=== PATIENT | male | born 1960 | race Caucasian/White ===

== ENCOUNTER 2016-12-24 07:55 | Emergency (ER) | payer OTHER ==
[2016-12-24 08:54] LABS: BASOPHIL % 0.3 % (0-2)
[2016-12-24 09:00] LABS: PLATELET COUNT 145 x10^3mcL (130-400)
[2016-12-24 09:08] LABS: RED CELL DISTRIBUTION WIDTH 17.1 % (11.5-14.5)
[2016-12-24 09:13] LABS: CALCIUM 8.3 mg/dL (8.5-10.1); CARBON DIOXIDE 26.7 mmol/L (21-32); CHLORIDE SERUM 105 mmol/L (98-107); CREATININE SERUM 0.7 mg/dL (0.7-1.3); GFR1 > 60 mL/min; GLUCOSE SERUM 100 mg/dL (74-106); POTASSIUM SERUM 3.5 mmol/L (3.5-5.1); SODIUM SERUM 138 mmol/L (136-145)
[2016-12-24 09:28] LABS: CK-MB 0.9 ng/mL (0-3.6)
[2016-12-24 11:52] VITALS: BP 140/64
== END 2016-12-24 11:53 | disposition home or self-care (01) ==
LOC: ED 07:55
PROVIDERS: Emergency Medicine
DX: R51 Headache (principal); M54.9 Dorsalgia, unspecified; I10 Essential (primary) hypertension
CPT/HCPCS: 83880; J0360; J1885

== ENCOUNTER 2017-01-23 07:37 | Emergency (ER) | payer OTHER ==
[~2017-01-23] VITALS: Ht 170.2 cm; Wt 104.3 kg
[2017-01-23 08:23] VITALS: BP 157/92
== END 2017-01-23 08:23 | disposition home or self-care (01) ==
LOC: ED 07:37
DX: B02.9 Zoster without complications (principal); E11.9 Type 2 diabetes mellitus without complications; G62.9 Polyneuropathy, unspecified; E78.5 Hyperlipidemia, unspecified

== ENCOUNTER 2018-05-21 18:01 | Emergency (ER) | payer OTHER ==
[~2018-05-21] VITALS: Ht 167.6 cm; Wt 104.8 kg
[2018-05-21 18:05] VITALS: Ht 167.6 cm; Wt 104.8 kg
[2018-05-21 19:17] VITALS: BP 167/95
== END 2018-05-21 19:58 | disposition home or self-care (01) ==
LOC: ED 18:01
DX: M54.42 Lumbago with sciatica, left side (principal); M54.41 Lumbago with sciatica, right side; I10 Essential (primary) hypertension; E78.5 Hyperlipidemia, unspecified
CPT/HCPCS: J1885

== ENCOUNTER 2019-07-31 18:08 | Emergency (ER) | payer OTHER ==
[~2019-07-31] VITALS: Ht 170.2 cm; Wt 101.6 kg
[2019-07-31 19:30] VITALS: Ht 170.2 cm; Wt 101.6 kg
[2019-07-31 21:20] VITALS: BP 167/67
== END 2019-07-31 21:20 | disposition home or self-care (01) ==
LOC: ED 18:08
DX: M75.31 Calcific tendinitis of right shoulder (principal); M19.011 Primary osteoarthritis, right shoulder; I10 Essential (primary) hypertension; E78.5 Hyperlipidemia, unspecified

== ENCOUNTER 2019-09-01 23:01 | Inpatient (IN) | payer OTHER ==
[~2019-09-01] VITALS: Ht 165.1 cm; Wt 102.5 kg
[2019-09-01 23:10] VITALS: Ht 165.1 cm; Wt 102.5 kg
--- NOTE | 2019-09-01 23:10 | NUR ---
EKG IN PROGRESS.
--- NOTE | 2019-09-01 23:40 | NUR ---
PT PROVIDED WITH URINAL AND INSTRUCTED TO PROVIDE URINE SAMPLE HENRIK.
--- NOTE | 2019-09-01 23:49 | NUR ---
PT PRESENTS TO ED WITH C/C MID UPPER QUAD "STRONG" ABD PAIN THAT RADIATES TO UPPER BACK AND IS CIRCUMFRENTIAL. 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 DENIES CHEST PAIN, DENIES SOB. PT DENIES N/V/D/C. PT REPORTS HX OF HTN, STS HE TAKES LISINPRIL 40MG BID. PT REPORTS BEING COMPLIANT WITH MED REGIMEN. PT SPEAKING CLEARLY IN FULL SENTENCES. NO FACIAL DROOP NOTED. ABLE TO AMBULATE WITH STEADY GAIT. STREGTH EQUAL TERESITA. CONNECTED TO FULL CM. DR VELAZQUEZ AT BEDSIDE FOR MSE.
--- NOTE | 2019-09-01 23:58 | NUR ---
XRAP AT BEDSIDE FOR PCXR.
[2019-09-02 00:17] LABS: BASOPHIL % 0.2 % (0-2); PLATELET COUNT 176 x10^3mcL (130-400)
[2019-09-02 00:18] LABS: RED CELL DISTRIBUTION WIDTH 16.6 % (11.5-14.5)
[2019-09-02 00:38] LABS: T3 TOTAL 0.9 ng/mL
[2019-09-02 00:52] LABS: FREE T4 0.94 ng/dL (0.76-1.46); FREE THYROXINE INDEX 2.6 ug/dL (1.4-4.5); T4(THYROXINE) 8.9 ug/dL (4.7-13.3)
[2019-09-02 01:01] LABS: CHOLESTEROL 172 mg/dL (<200); HDL CHOLESTEROL 43 mg/dL (40-60); LIPASE 252 IU/L (73-393); TRIGLYCERIDES 104 mg/dL (<150)
--- NOTE | 2019-09-02 01:06 | NUR ---
US AT BEDSIDE. PT INSTRUCTED AGAIN TO PROVIDE URINE SAMPLE HENRIK.
[2019-09-02 01:23] LABS: ALBUMIN 3.5 g/dL (3.4-5.0); TOTAL PROTEIN, SERUM 7.6 g/dL (6.4-8.2)
[2019-09-02 01:24] LABS: ALKALINE PHOSPHATASE 151 U/L (46-116); ALT/SGPT 94 U/L (16-63); AST/SGOT 15 U/L (15-37); BILIRUBIN TOTAL 0.4 mg/dL (0.20-1.00)
[2019-09-02 01:33] LABS: CARBON DIOXIDE 24.7 mmol/L (21-32); CHLORIDE SERUM 104 mmol/L (98-107); CREATININE SERUM 0.8 mg/dL (0.7-1.3); GFR1 > 60 mL/min; GLUCOSE SERUM 258 mg/dL (74-106); POTASSIUM SERUM 3.6 mmol/L (3.5-5.1); SODIUM SERUM 140 mmol/L (136-145)
[2019-09-02 01:34] LABS: CALCIUM 8.6 mg/dL (8.5-10.1)
--- NOTE | 2019-09-02 02:09 | NUR ---
LAB AT BEDSIDE.
[2019-09-02 02:22] LABS: UA SPECIFIC GRAVITY 1.025 (1.005-1.035); microscopic required? YES; urine erythrocyte 1+ (NEGATIVE)
--- NOTE | 2019-09-02 03:05 | NUR ---
PT REPORTS PAIN IS MINIMAL AT THIS TIME. STS ALL NEEDS ATTENDED TO. IN POSITION OF COMFORT. WILL CONTINUE TO MONITOR.
[2019-09-02] MEDS ORDERED: LISINOPRIL40 MG PO (03:27)
--- NOTE | 2019-09-02 04:34 | NUR ---
REPORT GIVEN TO MARISA NDIAYE TO ASSUME CARE.
--- NOTE | 2019-09-02 04:40 | NUR ---
PT ARRIVED TO FLOOR VIA BED AND AMBULATED BED WITH STEADY GAIT, PT IS A/OX4 NO COMPLAINTS OF JUNIOR OR DIZZINESS NOTED AT THIS TIME, PT DENIES PAIN OR SOB AT THIS TIME, PT ABD IS LARGE AND ROUND, SOFT, AND NONTENDER TO PALPATION, PERIPHERAL PULSES PALPABLE THROUGH OUT, NO EDEMA PRESENT AT THIS TIE, IV TO THE 20G SALINE LOCKED, PT ORIENTED TO CONTROLS OF THE ROOM, BED IN THE LOWEST POSITION, SIDE RAILS UP X2, ALL PT NEEDS AND CONCERNS ADRESSED AT THIS TIME, WILL CONTINUE TO MONITOR
[2019-09-02 05:12] VITALS: BP 164/63
--- NOTE | 2019-09-02 05:20 | NUR ---
PAGED DR BRANDON FOR ADMIT ORDERS
[2019-09-02 05:37] VITALS: BP 164/63
--- NOTE | 2019-09-02 05:48 | NUR ---
DR BRANDON CALLED BACK AND GAVE ADMIT ORDERS
--- NOTE | 2019-09-02 06:15 | NUR ---
PT BLOOD PRESSURE 164/63 PT IS ASYMPTOMATIC, ADMINISTERED CLONADIN PO PER DR BRANDON PRN ORDER. WILL MONITOR
--- NOTE | 2019-09-02 06:42 | NUR ---
PT RESTED COMFORTABLY SINCE ADMISSION WITH NO ACUTE DISTRESS, PT DENIED PAIN OR SOB, ALL PT NEEDS ATTENDED TO WILL CONTINUE TO MONITOR AND ENDORSE CARE TO ONCOMING SHIFT
--- NOTE | 2019-09-02 07:15 | NUR ---
RECEIVED PT FROM NIGHT NURSE. PT IS LAYING DOWN IN BED WITH HOB UP. PT LOOKS TO BE IN NO ACUTE DISTRESS AT THIS TIME AND DENIES ANY PAIN. RESPIRATIONS EVEN AND UNLABORED ON ROOM AIR. IV SITE PATENT WITH NO SIGNS OF ERYTHEMA OR SWELLING WITH IV FLUIDS INFUSING. CALL LIGHT WITHIN REACH. WILL CONTINUE TO MONITOR.
[2019-09-02 08:12] VITALS: BP 144/67
[2019-09-02 09:45] LABS: ALKALINE PHOSPHATASE 124 U/L (46-116); ALT/SGPT 68 U/L (16-63); AST/SGOT 5 U/L (15-37); BILIRUBIN TOTAL 0.23 mg/dL (0.20-1.00); CALCIUM 8.2 mg/dL (8.5-10.1); CHLORIDE SERUM 103 mmol/L (98-107); CREATININE SERUM 0.8 mg/dL (0.7-1.3); GFR1 > 60 mL/min; GLUCOSE SERUM 206 mg/dL (74-106); POTASSIUM SERUM 3.8 mmol/L (3.5-5.1); SODIUM SERUM 137 mmol/L (136-145); TOTAL PROTEIN, SERUM 6.4 g/dL (6.4-8.2)
[2019-09-02 09:55] LABS: ALBUMIN 2.9 g/dL (3.4-5.0)
[2019-09-02 10:04] LABS: BASOPHIL % 0.1 % (0-2); PLATELET COUNT 169 x10^3mcL (130-400); RED CELL DISTRIBUTION WIDTH 16.5 % (11.5-14.5)
[2019-09-02 12:35] VITALS: BP 156/69
--- NOTE | 2019-09-02 12:45 | NUR ---
INFORMED THE PT OF ANTIBIOTIC THAT IS ORDERED AT THIS TIME. PT ASKED WHY HE IS GETTING THE ANTIBIOTIC AND IS ASKING WHEN HE WILL BE ABLE TO GO HOME BECAUSE HE SAYS THAT HE IS "NOT FEELING ANY PAIN RIGHT NOW." PT STATED THAT HE, "ONLY FELT THE PAIN FOR ABOUT 45 MINUTES AFTER EATING THE CHICKEN AND CHEESE AT THE RESTRUANT AND HAS NOT FELT ANY PAIN SINCE." INFORMED THE PT OF THE TREATMENT PURPOSE, PT VERBALIZED UNDERSTANDING AND IS ASKING WHEN HE CAN EAT, REINFORMED THE PT OF TREATMENT PURPOSE AND INFORMED THE PT THAT WILL ASK SURGEON WHEN HE CAN EAT.
--- NOTE | 2019-09-02 12:57 | NUR ---
CALLED AND SPOKE TO (SURGEON) AARON HAD SEEN PT THIS AM. MADE HER AWARE PT HAD EXPRESSED HUNGER, NEW ORDER RECEIVED TO START PT ON LOW FAT DIET AND OOB AMBULATE. IF PT TOLERATES DIET, OKAY TO DISCHARGE HOME IF OKAY WITH . LORA RN ASSIGNED TO THIS PT MADE AWARE OF ABOVE.
--- NOTE | 2019-09-02 13:05 | NUR ---
RECEIVED DIET ORDERED FROM DR. ARMSTRONG. INFORMED PT OF THE NEED TO INFORM THE NURSE IF FEELING ANY PAIN AFTER EATING LUNCH. PT VERBALIZED UNDERSTANDING. INFORMED THE PT TO AMBULATE AFTER EATING AND TO INFORM THE NURSE IF FEELING ANY PAIN. PT VERBALIZED UNDERSTANDING. FAMILY MEMBER AT BEDSIDE. WILL CONTINUE TO MONITOR.
--- NOTE | 2019-09-02 13:59 | NUR ---
PT FINISHED EATING LUNCH AND PT DENIES ANY PAIN AT THIS TIME. PT STATES THAT ALSO AFTER AMBULATING HE DID NOT AND STILL DENIES ANY PAIN AT THIS TIME. FAMILY MEMBER AT BEDSIDE. WILL CONTINUE TO MONITOR.
[2019-09-02 16:19] VITALS: BP 156/78
--- NOTE | 2019-09-02 19:03 | NUR ---
PT IS LAYING DOWN IN BED WITH HOB UP. PT LOOKS TO BE IN NO ACUTE DISTRESS AT THIS TIME AND DENIES ANY PAIN. PT STATES THAT HE FEELS BETTER AND FEELS THAT HE IS READY TO GO HOME. RESPRIATIONS EVEN AND UNLABORED ON ROOM AIR. IV SITE PATENT WITH NO SIGNS OF ERYTHEMA OR SWELLING. CALL LIGHT WITHIN [facility], WILL ENDORSE TO ONCOMING SHIFT.
--- NOTE | 2019-09-02 19:30 | NUR ---
RECEIVED PT FROM AM NURSE MARISA GONZALEZ. PT AAOX4, ABLE TO FOLLOW COMMANDS AND MAKE NEEDS KNOWN. MED-SURG, DENIES CP/PRESSURE AT THIS TIME. PALPABLE PULSES TO ALL EXTREMETIES. NO EDEMA NOTED. LUGN SOUNDS CTA. BREATHING EVEN AND UNLABORED ON RA. NO ACUTE DISTRESS NOTED. ABD SOFT AND ROUND. ACTIVE BS X4 QUAD. DENIES ANY PAIN, N/V/D. DENIES ABD TENDERNESS. VOIDS FREELY, BRP. AMBULATORY. IV TO RH INFUSING D5 1/2NS AT 50. SITE WNL. BED AT LOWEST SETTING. SIDE RAILS X2 UP. CALL LIGHT WITHING REACH. WILL CONT TO MONITOR.
[2019-09-02 19:35] VITALS: BP 143/67
--- NOTE | 2019-09-03 00:05 | NUR ---
PT LAYING DOWN IN BED WITH EYES CLOSED, BREATHING EVEN AND UNLABORED ON RA. NO ACUTED DISTRESS NOTED. BED AT LOWEST SETTING. SIDE RAILS X2 UP. CALL LIGHT WITHING REACH. WILL CONT TO MONITOR.
[2019-09-03 04:45] VITALS: BP 102/64
[2019-09-03 04:50] VITALS: BP 164/77
--- NOTE | 2019-09-03 06:20 | NUR ---
PT SLEPT AT LONG INTERVALS THOUGHOUT THE NIGHT, BREATHING EVEN AND UNLABORED ON RA. NO SIGNIFICANT CHANGES DURING SHIFT. NO C/O OF PAIN DURING NIGHT. ALL NEEDS ASSESSED AND ATTENDED TO. IV TO LH PATENT AND INTACT. SITE WNL. BED AT LOWEST SETTING. SIDE RAILS X2 UP. CALL LIGHT WIHTING REACH. WILL ENDORSE CARE TO AM NURSE.
[2019-09-03 06:37] LABS: ALKALINE PHOSPHATASE 105 U/L (46-116); ALT/SGPT 59 U/L (16-63); AST/SGOT 13 U/L (15-37); BILIRUBIN TOTAL 0.5 mg/dL (0.20-1.00); CALCIUM 8.1 mg/dL (8.5-10.1); CARBON DIOXIDE 26.4 mmol/L (21-32); CHLORIDE SERUM 106 mmol/L (98-107); CREATININE SERUM 0.7 mg/dL (0.7-1.3); GFR1 > 60 mL/min; GLUCOSE SERUM 132 mg/dL (74-106); POTASSIUM SERUM 4.1 mmol/L (3.5-5.1); SODIUM SERUM 142 mmol/L (136-145); TOTAL PROTEIN, SERUM 6.4 g/dL (6.4-8.2)
[2019-09-03 06:46] LABS: ALBUMIN 2.9 g/dL (3.4-5.0)
[2019-09-03 07:03] LABS: BASOPHIL % 0.1 % (0-2); PLATELET COUNT 172 x10^3mcL (130-400)
[2019-09-03 07:26] LABS: RED CELL DISTRIBUTION WIDTH 16.4 % (11.5-14.5)
--- NOTE | 2019-09-03 07:37 | NUR ---
RECEIVED HAND OFF REPORT FROM NIGHT NURSE, JEAN CLAUDE CUNNINGHAM. PATIENT LAYING SUPINE IN BED WITH NO COMPLAINTS OF PAIN. STATING THAT HE HAS NOT HAD PAIN FOR 24 HOURS AND WOULD LIKE TO GO HOME TODAY. INFOMRED TO AWAIT FOR DR TO ROUND TODAY. PER DR ARMSTRONG, NO SURGERY IS RECOMENDED. OREITNED PATIENT TO CALL LIGHT SYSTEM AND PLACED WITHIN REACH
[2019-09-03 08:00] VITALS: BP 162/72
--- NOTE | 2019-09-03 10:56 | NUR ---
WITH HELP OF STACIE CUNNINGHAM. REMOVED OTOOLE CATH AND PLACED 3 WAY OTOOLE FOR CONT BLADDER IRRIGATION. MILD DISCOMFORT DURING PROCEDURE. CONTINUOUS FLOW OF FLUID OUT INTO COLLECTION BAG. INNITIAL OUTPUT OF 550 DARK RED OUTPUT WITH BLOOD CLOTS SEEN. NOW LIGHT RED TO CLEAR DRAINAGE. PATIENT AND FAMILY EDUCATED ABOUT PROCEDURE. CALL LIGHT WITHIN REACH
--- NOTE | 2019-09-03 11:42 | NUR ---
DR ARMSTRONG ROUNDED ON PATIENT. NEW ORDER FOR HIDA SCAN. PATIENT AWARE. DR MARTIN HAS NOT SEEM PATIENT YET TODAY
[2019-09-03 12:20] VITALS: BP 162/78
--- NOTE | 2019-09-03 12:50 | NUR ---
PATIENT SIGNED AMA, STATING HE WISHES TO LEAVE, DR MARTIN DID NOT SEE PATIETN TODAY. DR AWARE. DR TRINIDAD SAW PATIENT AND WITH EMPLOYEE WELLNESS/FITNESS COORDINATOR OFFERED FOR APTIENT TO HAVE HIDA SCAN. PATIETN WAS EDUCATED ABOUT SCAN AND STILL REFUSED. IV REMOVED AND PATIETNW ESCORTED OFF UNIT BY [facility]
== END 2019-09-03 12:45 | disposition left against medical advice (07) | DRG 446 ==
LOC: ED 23:01 → MU 09-02 04:08
PROVIDERS: Specialist; Surgery; ADMIT Internal Medicine
DX: K80.00 Calculus of gallbladder with acute cholecystitis without obstruction (principal); I10 Essential (primary) hypertension; G89.29 Other chronic pain; M54.30 Sciatica, unspecified side; M54.5 Low back pain; E78.5 Hyperlipidemia, unspecified; E66.9 Obesity, unspecified; Z68.37 Body mass index [BMI] 37.0-37.9, adult
CPT/HCPCS: 83880; 84439; C9113; G0378; J1885; J2543; J3490; J7030; Q0092

== ENCOUNTER 2020-06-06 10:51 | Emergency (ER) | payer OTHER ==
[~2020-06-06] VITALS: Ht 165.1 cm; Wt 103.4 kg
[~2020-06-06 10:51] MED LIST: LISINOPRIL40 MG PO
[2020-06-06 11:03] VITALS: Ht 165.1 cm; Wt 103.4 kg
[2020-06-06 12:00] VITALS: BP 196/82
== END 2020-06-06 12:00 | disposition home or self-care (01) ==
LOC: ED 10:51
DX: R42 Dizziness and giddiness (principal); G89.29 Other chronic pain; M54.9 Dorsalgia, unspecified; I10 Essential (primary) hypertension
CPT/HCPCS: 82962